=== PATIENT | male | born 1980 | race Hispanic/Latino ===

== ENCOUNTER 2019-04-10 17:28 | Inpatient (IN) | payer SELFPAY ==
[~2019-04-10] VITALS: Ht 167.6 cm; Wt 95.3 kg
[2019-04-10 18:51] LABS: BASOPHILS % (AUTO) 0.1 % (0.0-5.0); HEMATOCRIT 37.6 % (42-54); LYMPHOCYTES % (AUTO) 7.4 % (21.0-51.0); MEAN CORPUSCULAR HEMOGLOBIN 30.6 pg (27.0-33.0); MEAN CORPUSCULAR HGB CONC 35.4 g/dL (32.0-36.0); MEAN CORPUSCULAR VOLUME 86.4 fL (79-99); MONOCYTES % (AUTO) 4.7 % (3.0-13.0); NEUTROPHILS % (AUTO) 87.8 % (40.0-77.0); NUCLEATED RED BLOOD CELLS 0.1 % (0.0-0.19); PLATELET COUNT (AUTO) 240 K/uL (130-400); RED BLOOD CELL COUNT(AUTO) 4.36 MIL/uL (4.50-6.20); RED CELL DISTRIBUTION WIDTH 12.6 % (11.0-15.5); WHITE BLOOD COUNT (AUTO) 8.2 K/uL (4.8-10.8)
[2019-04-10] MEDS ORDERED: CEFTRIAXONE SODIUM 1 GM ONE (19:01)
[2019-04-10 19:02] LABS: CREATININE 1.1 mg/dL (0.5-1.5); POTASSIUM 3.5 mmol/L (3.5-5.1)
[2019-04-10] MEDS ORDERED: AZITHROMYCIN 250 MG TABLET PO ONE (19:02)
[2019-04-10 19:06] LABS: ALBUMIN 3.6 g/dL (3.5-5.0); BILIRUBIN,TOTAL 0.3 mg/dL (0.2-1.0); TOTAL PROTEIN, SERUM 8.3 g/dL (6.0-8.3)
[2019-04-10] MEDS ORDERED: ACETAMINOPHEN 325 MG TAB PO PRN ×2 (20:00)
[2019-04-10] MEDS ORDERED: ONDANSETRON HCL 4 MG/2 ML VIAL IV PRN (20:00)
[2019-04-10] MEDS ORDERED: FAMOTIDINE/PF 20 MG/2 ML VIAL IV ONE (20:31)
[2019-04-10] MEDS ORDERED: ENOXAPARIN SODIUM 30 MG/0.3 ML SQ ONE (20:31)
[2019-04-10] MEDS ORDERED: SODIUM CHLORIDE 0.9% 1000ML 1,000 ML IV ONE (20:32)
[2019-04-10] MEDS: FAMOTIDINE/PF 20 MG/2 ML VIAL IV SCH (21:00)
[2019-04-10] MEDS: ENOXAPARIN SODIUM 30 MG/0.3 ML SQ SCH (21:00)
[2019-04-10 22:20] VITALS: BP 120/66
--- NOTE | 2019-04-10 22:30 | NUR ---
Admission Assessment Received pt from Ed per wheelchair with spouse around, routine admission assessment done, plan of care discuss, updated with all blood test & radiologic test done in ED, with all concern questions addressed. Pt admits smoking on occasion marijuana last time smoking it was 2 months ago as claimed. Advise to stop as it's not good for his health & can lead for him to loss his job or in trouble. Pt to be started on IV fluids NS at 150cc/hr as ordered, to be medicated with cough medicines as (+) coughing productive yellowish-greenish in color. Pt encourage to increase his fluid intake. Pt claimed has been sick since 04/01/2019, went toa clinic in [place] was given Amoxicillin 500mg BID but claimed he did get better at all reason he came in. Reported Temp 101.9, to be medicated with Tylenol & pt instructed no blanket for now, agreed.
[2019-04-10] MEDS: GUAIFENESIN-CODEINE 5 ML SYRUP PO PRN (22:53)
[2019-04-10] MEDS: SODIUM CHLORIDE 0.9% 1000ML 1,000 ML IV SCH (22:58)
[2019-04-11] MEDS: IPRATROPIUM/ALBUTEROL SULFATE 3 ML SOLUTION IH SCH ×5 (00:30→23:16)
[2019-04-11 04:00] VITALS: BP 112/62
[2019-04-11] MEDS: GUAIFENESIN-CODEINE 5 ML SYRUP PO PRN ×2 (04:42→09:57)
[2019-04-11] MEDS: SODIUM CHLORIDE 0.9% 1000ML 1,000 ML IV SCH ×3 (04:43→14:57)
[2019-04-11 08:00] VITALS: BP 105/64
[2019-04-11] MEDS: FAMOTIDINE/PF 20 MG/2 ML VIAL IV SCH ×2 (09:57→22:17)
[2019-04-11] MEDS: ENOXAPARIN SODIUM 30 MG/0.3 ML SQ SCH (09:57)
[2019-04-11 12:00] VITALS: BP 92/58
[2019-04-11] MEDS ORDERED: HYDROCODONE/ACETAMINOPHEN 5/325 MG TAB PO PRN (14:15)
[2019-04-11] MEDS: METHYLPREDNISOLONE SOD SUCC 40MG/ML 1ML IVP SCH ×2 (14:55→22:16)
[2019-04-11] MEDS: CEFTRIAXONE SODIUM 1 GM IVP SCH (14:56)
[2019-04-11 16:00] VITALS: BP 100/53
[2019-04-11] MEDS ORDERED: CEFTRIAXONE SODIUM 1 GM IV SCH (18:00)
[2019-04-11] MEDS ORDERED: GUAIFENESIN-CODEINE 5 ML SYRUP ONE ×2 (18:46→18:49)
[2019-04-11] MEDS: GUAIFENESIN-CODEINE 5 ML SYRUP PO SCH (18:50)
[2019-04-11] MEDS ORDERED: MORPHINE SULFATE 2 MG/ML 1ML SYG IVP PRN (19:15)
[2019-04-11] MEDS ORDERED: HYDROMORPHONE HCL 2 MG/ML VIAL IVP PRN (19:15)
[2019-04-11 20:00] VITALS: BP 118/63
[2019-04-11] MEDS: AZITHROMYCIN 500MG+NS 250ML 250 ML IV SCH (22:16)
[2019-04-11] MEDS: OSELTAMIVIR PHOSPHATE 75 MG CAP PO SCH (22:17)
[2019-04-12] VITALS: BP 100/70
[2019-04-12] MEDS: GUAIFENESIN-CODEINE 5 ML SYRUP PO SCH ×4 (02:00→21:57)
[2019-04-12 04:00] VITALS: BP 103/64
[2019-04-12] MEDS: SODIUM CHLORIDE 0.9% 1000ML 1,000 ML IV SCH (04:50)
[2019-04-12 06:11] LABS: HEMATOCRIT 35.3 % (42-54); MEAN CORPUSCULAR HEMOGLOBIN 29.6 pg (27.0-33.0); MEAN CORPUSCULAR HGB CONC 34.1 g/dL (32.0-36.0); MEAN CORPUSCULAR VOLUME 86.8 fL (79-99); PLATELET COUNT (AUTO) 281 K/uL (130-400); RED BLOOD CELL COUNT(AUTO) 4.06 MIL/uL (4.50-6.20); RED CELL DISTRIBUTION WIDTH 12.7 % (11.0-15.5); WHITE BLOOD COUNT (AUTO) 5.4 K/uL (4.8-10.8)
[2019-04-12 06:17] LABS: CREATININE 0.9 mg/dL (0.5-1.5); POTASSIUM 3.9 mmol/L (3.5-5.1)
[2019-04-12] MEDS: METHYLPREDNISOLONE SOD SUCC 40MG/ML 1ML IVP SCH ×3 (06:42→21:57)
[2019-04-12] MEDS: IPRATROPIUM/ALBUTEROL SULFATE 3 ML SOLUTION IH SCH ×3 (07:02→19:48)
[2019-04-12 07:59] VITALS: BP 110/62
[2019-04-12] MEDS: FAMOTIDINE/PF 20 MG/2 ML VIAL IV SCH ×2 (08:57→21:57)
[2019-04-12] MEDS: OSELTAMIVIR PHOSPHATE 75 MG CAP PO SCH ×2 (08:57→21:57)
[2019-04-12] MEDS: ENOXAPARIN SODIUM 30 MG/0.3 ML SQ SCH (09:02)
[2019-04-12 12:00] VITALS: BP 111/59
--- NOTE | 2019-04-12 13:00 | NUR ---
INITIAL ATTEMPTED SPOKE BRIEFLY TO MOM IN ROOM; PT IN RESTROOM WILL RETURN. PT AMBULATORY, INDP OF ADLS, EMPOLOYED, NO INSURANCE. PENDING [facility] . Addendum: 04/13/19 at 0836 by YOSEF REYES RN CM Amended: Links added.
[2019-04-12] MEDS: CEFTRIAXONE SODIUM 1 GM IVP SCH (14:22)
[2019-04-12 16:00] VITALS: BP 98/56
[2019-04-12] MEDS ORDERED: COMPOUND PO MISCELLANEOUS 1 EACH MISC MISC PRN (17:00)
[2019-04-12] MEDS: ACETYLCYSTEINE 10% 100MG/ML 4ML VIAL IH SCH (19:48)
[2019-04-12 20:00] VITALS: BP 102/59
[2019-04-12] MEDS: FLUTICASONE PROPIONATE 50MCG/SPRAY 16 GM BOTTLE EN SCH (21:57)
[2019-04-12] MEDS: AZITHROMYCIN 500MG+NS 250ML 250 ML IV SCH (21:58)
[2019-04-13] VITALS: BP 131/58
[2019-04-13] MEDS: IPRATROPIUM/ALBUTEROL SULFATE 3 ML SOLUTION IH SCH ×5 (00:41→23:13)
[2019-04-13] MEDS: ACETYLCYSTEINE 10% 100MG/ML 4ML VIAL IH SCH ×3 (00:41→11:13)
[2019-04-13] MEDS: GUAIFENESIN-CODEINE 5 ML SYRUP PO SCH ×4 (01:53→21:05)
[2019-04-13 04:00] VITALS: BP 102/60
[2019-04-13] MEDS: METHYLPREDNISOLONE SOD SUCC 40MG/ML 1ML IVP SCH (05:32)
[2019-04-13 05:46] LABS: HEMATOCRIT 36.7 % (42-54); MEAN CORPUSCULAR HEMOGLOBIN 30.1 pg (27.0-33.0); MEAN CORPUSCULAR HGB CONC 34.5 g/dL (32.0-36.0); MEAN CORPUSCULAR VOLUME 87.2 fL (79-99); PLATELET COUNT (AUTO) 319 K/uL (130-400); RED BLOOD CELL COUNT(AUTO) 4.21 MIL/uL (4.50-6.20); RED CELL DISTRIBUTION WIDTH 12.8 % (11.0-15.5); WHITE BLOOD COUNT (AUTO) 13.6 K/uL (4.8-10.8)
[2019-04-13 06:01] LABS: CREATININE 0.8 mg/dL (0.5-1.5); POTASSIUM 4.4 mmol/L (3.5-5.1)
[2019-04-13 08:00] VITALS: BP 114/75
[2019-04-13] MEDS: FAMOTIDINE/PF 20 MG/2 ML VIAL IV SCH ×2 (08:02→21:05)
[2019-04-13] MEDS: OSELTAMIVIR PHOSPHATE 75 MG CAP PO SCH ×2 (08:02→21:06)
[2019-04-13] MEDS: ENOXAPARIN SODIUM 30 MG/0.3 ML SQ SCH (08:09)
[2019-04-13] MEDS: FLUTICASONE PROPIONATE 50MCG/SPRAY 16 GM BOTTLE EN SCH ×2 (08:12→21:12)
[2019-04-13 12:00] VITALS: BP 109/63
[2019-04-13] MEDS: CEFTRIAXONE SODIUM 1 GM IVP SCH (14:22)
[2019-04-13 16:00] VITALS: BP_SYST 100; BP_SYST 115; BP_DIAS 52; BP_DIAS 73
[2019-04-13 20:10] VITALS: BP 120/64
[2019-04-13] MEDS: AZITHROMYCIN 500MG+NS 250ML 250 ML IV SCH (21:06)
--- NOTE | 2019-04-13 22:20 | NUR ---
NOTE PATIENT REQUESTED A SLEEPING PILL, SAYS HE HAS NOT BEEN ABLE TO SLEEP WELL. PAGED HOSPITALIST TO ASK.
--- NOTE | 2019-04-13 22:35 | NUR ---
NOTE DR. LUCIANO REPONDED TO PAGE. ORDERED RESTORIL. ALSO INQUIRED REGARDING PULMOCORT LISTED ON HIS DICTATION, BUT IS DOES NOT APPEAR IN THE ORDERS. HE SAID TO GO AHEAD AND ORDER IT FOR PATIENT. ENTERED ORDERS IN COMPUTER.
[2019-04-13] MEDS ORDERED: TEMAZEPAM 7.5 MG CAPSULE PO PRN (22:45)
[2019-04-13] MEDS: BUDESONIDE 0.5 MG/2 ML INH IH SCH (23:13)
[2019-04-13] MEDS: SODIUM CHLORIDE 3% FOR INHALATION 4 ML/AMP VIAL.NEB IH SCH (23:13)
[2019-04-14] VITALS (7 sets, daily range): BP systolic 97–112; BP diastolic 47–69
--- NOTE | 2019-04-14 00:49 | NUR ---
NOTE PATIENT IS HAVING A NON STOP COUGHING SPELL. HE IS ANGRY AND DEMANDING FOR A DOCTOR TO COME AND TREAT HIM NOW. WANTING TO ASSESS HIM BUT HE IS RELUCTANT AND ONLY WANTS ME TO GET HIM THE DOCTOR TO COME. SAYS HE FEELS SOB. CHECKED HIS O2 SAT IT WAS 97% IN ROOM AIR. SHE IS ABLE TO SPEAK INBETWEEN COUGHS. INQUIRED ABOUT WHAT HE WAS DOING WHEN IT STARTED AND HE SAID HE WAS JUST IN BED AND HE HAD GOTTEN THE RESPIRATORY MEDICATIONS EARLIER AND THE HE DOES NOT WANT TO TAKE THOSE ANYMORE. HE IS ANGRY AND DEMANDING FOR A DOCTOR TO COME AND TREAT HIM NOW. TOLD HIM I WILL BE PAGING THE DOCTOR. SPOKE TO RT AND SAYS LAST TIME SHE GAVE HIM THE NEB TREATMENT DUO NEB, PULMOCORT, AND HYPERTONIC SALINE IN SUBSEQUENT ORDER. CONTACTED ANSWERING SERVICE TO PAGE DR. LUCIANO.
--- NOTE | 2019-04-14 00:52 | NUR ---
NOTE SPOKE TO DR. LUCIANO AND TOLD HIM ABOUT PATIENT HAVING COUGHING SPELL THAT MAKES HIM FEEL SOB. O2 SAT 97%. NOTIFIED HIM OF THE LAST TIME NEB TREATMENT WERE GIVEN TO HIM. ORDERED TO GIVE HIM AND EXTRA DOSE NOW OF THE ROBITTUSSIN AC HE HAS BEEN RECEIVING.
[2019-04-14] MEDS: GUAIFENESIN-CODEINE 5 ML SYRUP PO SCH ×5 (01:01→21:34)
--- NOTE | 2019-04-14 01:06 | NUR ---
NOTE MY CATTLE SHIPPER REPORTS THAT HE WAS USING THE ACAPELLA DEVICE BEFORE SHE WALKED IN ROOM AND HE PUT IT DOWN WHEN SHE ANSWERED THE CALL LIGHT AND HE WAS WITH THE COUGHING SPELL. INQUIRED WITH PATIENT ABOUT IT. HE SAYS HE DID NOT USE IT. BROUGHT HIM THE DOSE OF ROBITTUSSIN AC THAT DR. LUCIANO ORDERED AND EXPLAINED TO HIM. BUT HE IS ANGRY AND IS DEMANDING FOR DOCTOR TO COME SEE HIM. TRIED TO EXPLAIN TO HIM, BUT HE IS ARGUMENTATIVE. STATED THAT HE IS GOING TO WALK OUT OF HERE IN 10 MINUTES IF THE DOCTOR DOES NOT SHOW UP TO SEE HIM. CONTACTED ASSOCIATE PROFESSOR OF ART HISTORY AND EXPLAINED SITUATION. ADVISED TO EXPLAIN TO PATIENT HIS RIGHT TO REFUSE MEDICAL TREATMENT AND TO LEAVE IF HE THAT IS HIS CHOICE. OTHERWISE DR. SIMEON OTOOLE WILL BE HERE TO SEE HIM IN HIS MORNING ROUNDS. I THEN WENT BACK TO ROOM AND TOLD PATIENT ALL THIS.
--- NOTE | 2019-04-14 01:20 | NUR ---
NOTE WENT TO SPEAK TO PATIENT ABOUT HIS DEMAND OF HAVING DR. LUCIANO COME HERE RIGHT NOW. TOLD HIM DR. LUCIANO WILL BE IN TO MAKE HIS ROUNDS IN THE MORNING AND THAT I HAD SPOKEN TO STORAGE ENGINEER (GERMAINE PAEZ RN). STATED THAT HE IS IF HE DOESN'T COME NOW HE IS GONG TO WALK OUT OF HERE AND ACCUSE EVERYONE OF NEGLIGENCE. HE THEN BEGAN TO ASK TO WHY CAN'T COME AND WHAT IS HE DOING AND WHERE IS HE. I ASKED HIM IF HE DID WANTED TO LEAVE TO LET ME TAKE OUT HIS IV LINE BEFORE HE LEFT AND THEN HE DECIDED HE WAS GOING TO TAKE THE MEDICINE FOR COUGH THAT I OFFERED HIM EARLIER. AFTER TAKING IT HE ASKED WHEN IS HE GETTING THE NEXT RESPIRATORY TREATMENT. I ASKED HIM IF HE WAS GOING TO REFUSE IT OR TAKE IT. AND HE SAID HE WILL TAKE IT. INFORMED RT.
[2019-04-14 04:37] LABS: HEMATOCRIT 36.2 % (42-54); MEAN CORPUSCULAR HEMOGLOBIN 29.3 pg (27.0-33.0); MEAN CORPUSCULAR HGB CONC 33.5 g/dL (32.0-36.0); MEAN CORPUSCULAR VOLUME 87.5 fL (79-99); NUCLEATED RED BLOOD CELLS 0.1 % (0.0-0.19); PLATELET COUNT (AUTO) 328 K/uL (130-400); RED BLOOD CELL COUNT(AUTO) 4.14 MIL/uL (4.50-6.20); RED CELL DISTRIBUTION WIDTH 12.7 % (11.0-15.5); WHITE BLOOD COUNT (AUTO) 14.5 K/uL (4.8-10.8)
[2019-04-14 04:41] LABS: CREATININE 0.9 mg/dL (0.5-1.5); POTASSIUM 4.1 mmol/L (3.5-5.1)
[2019-04-14] MEDS: IPRATROPIUM/ALBUTEROL SULFATE 3 ML SOLUTION IH SCH ×3 (06:00→18:58)
[2019-04-14] MEDS: SODIUM CHLORIDE 3% FOR INHALATION 4 ML/AMP VIAL.NEB IH SCH (06:00)
[2019-04-14] MEDS: BUDESONIDE 0.5 MG/2 ML INH IH SCH (06:00)
[2019-04-14] MEDS: OSELTAMIVIR PHOSPHATE 75 MG CAP PO SCH ×2 (08:54→20:41)
[2019-04-14] MEDS: FAMOTIDINE/PF 20 MG/2 ML VIAL IV SCH ×2 (08:54→20:41)
[2019-04-14] MEDS: FLUTICASONE PROPIONATE 50MCG/SPRAY 16 GM BOTTLE EN SCH ×2 (08:56→21:35)
[2019-04-14] MEDS: ENOXAPARIN SODIUM 30 MG/0.3 ML SQ SCH (08:58)
[2019-04-14] MEDS ORDERED: IBUPROFEN 600 MG TABLET PO PRN (10:30)
[2019-04-14] MEDS: PREDNISONE 10 MG TABLET PO SCH (11:05)
[2019-04-14] MEDS: BENZONATATE 100 MG CAPSULE PO PRN ×2 (11:06→20:41)
[2019-04-14] MEDS: CEFTRIAXONE SODIUM 1 GM IVP SCH (14:36)
[2019-04-14] MEDS: AZITHROMYCIN 500MG+NS 250ML 250 ML IV SCH (20:41)
[2019-04-15] MEDS: IPRATROPIUM/ALBUTEROL SULFATE 3 ML SOLUTION IH SCH ×5 (00:03→23:15)
[2019-04-15 00:06] VITALS: BP 131/75
[2019-04-15 00:08] VITALS: BP 102/51
[2019-04-15] MEDS: GUAIFENESIN-CODEINE 5 ML SYRUP PO SCH ×2 (04:22→09:42)
[2019-04-15 04:53] VITALS: BP 102/55
[2019-04-15 08:00] VITALS: BP 99/57
[2019-04-15] MEDS: FLUTICASONE PROPIONATE 50MCG/SPRAY 16 GM BOTTLE EN SCH ×2 (09:38→21:22)
[2019-04-15] MEDS: PREDNISONE 10 MG TABLET PO SCH (09:39)
[2019-04-15] MEDS: OSELTAMIVIR PHOSPHATE 75 MG CAP PO SCH ×2 (09:39→21:17)
[2019-04-15] MEDS: FAMOTIDINE/PF 20 MG/2 ML VIAL IV SCH (09:41)
[2019-04-15] MEDS: ENOXAPARIN SODIUM 30 MG/0.3 ML SQ SCH (09:42)
[2019-04-15 11:00] VITALS: BP 129/87
[2019-04-15] MEDS: AMOXICILLIN/POTASSIUM CLAV 500-125 TABLET PO SCH ×2 (13:05→21:17)
[2019-04-15] MEDS: BENZONATATE 100 MG CAPSULE PO PRN (13:20)
[2019-04-15 16:00] VITALS: BP 102/50
[2019-04-15] MEDS: AZITHROMYCIN 500MG+NS 250ML 250 ML IV SCH (21:17)
[2019-04-15] MEDS: FAMOTIDINE 20MG TAB 20 MG TAB PO SCH (21:18)
[2019-04-16 00:15] VITALS: BP 114/69
[2019-04-16 04:22] VITALS: BP 96/65
[2019-04-16] MEDS: IPRATROPIUM/ALBUTEROL SULFATE 3 ML SOLUTION IH SCH ×2 (06:00→11:31)
[2019-04-16 06:10] LABS: HEMATOCRIT 39.3 % (42-54); MEAN CORPUSCULAR HEMOGLOBIN 29.4 pg (27.0-33.0); MEAN CORPUSCULAR HGB CONC 33.2 g/dL (32.0-36.0); MEAN CORPUSCULAR VOLUME 88.6 fL (79-99); PLATELET COUNT (AUTO) 357 K/uL (130-400); RED BLOOD CELL COUNT(AUTO) 4.44 MIL/uL (4.50-6.20); RED CELL DISTRIBUTION WIDTH 12.7 % (11.0-15.5); WHITE BLOOD COUNT (AUTO) 12.7 K/uL (4.8-10.8)
[2019-04-16] MEDS ORDERED: PRED10B PO (07:32)
[2019-04-16] MEDS ORDERED: BENZ-51 PO (07:32)
[2019-04-16] MEDS ORDERED: AMOX1TAB15 PO (07:32)
[2019-04-16 08:00] VITALS: BP 91/58
[2019-04-16] MEDS: ENOXAPARIN SODIUM 30 MG/0.3 ML SQ SCH (09:00)
[2019-04-16] MEDS: PREDNISONE 10 MG TABLET PO SCH (10:03)
[2019-04-16] MEDS: AMOXICILLIN/POTASSIUM CLAV 500-125 TABLET PO SCH (10:03)
[2019-04-16] MEDS: OSELTAMIVIR PHOSPHATE 75 MG CAP PO SCH (10:03)
[2019-04-16] MEDS: BENZONATATE 100 MG CAPSULE PO PRN (10:03)
[2019-04-16] MEDS: FAMOTIDINE 20MG TAB 20 MG TAB PO SCH (10:03)
[2019-04-16] MEDS: FLUTICASONE PROPIONATE 50MCG/SPRAY 16 GM BOTTLE EN SCH (10:04)
[2019-04-16 11:00] VITALS: BP 107/60
--- NOTE | 2019-04-16 11:25 | NUR ---
Pt. states he works out of town and unable to get to work by Sat. Notified Roland THOMASON, she said to wait, Dr. Kowalski will see pt. Notified pt.
== END 2019-04-16 14:30 | disposition home or self-care (01) | DRG 871 ==
LOC: EDH 17:28 → EDHIP 17:29 → 3AH 21:19
PROVIDERS: ADMIT Internal Medicine; ATTEND Internal Medicine
DX: A41.9 Sepsis, unspecified organism (principal); J18.1 Lobar pneumonia, unspecified organism; R09.02 Hypoxemia; E66.9 Obesity, unspecified; J31.0 Chronic rhinitis; J40 Bronchitis, not specified as acute or chronic; D70.8 Other neutropenia; T38.0X5A Adverse effect of glucocorticoids and synthetic analogues, initial encounter; Z68.33 Body mass index [BMI] 33.0-33.9, adult; Y92.89 Other specified places as the place of occurrence of the external cause
CPT/HCPCS: 36415; 71046; 80048; 80053; 83605; 85025; 85027; 93005; 94640; 94664; 94667; 94668; G0378; J0456; J0696; J1650; J2920; J3490; J7030; J7512; J7608